=== PATIENT | male | born 1960 | race Caucasian/White ===

== ENCOUNTER 2020-06-03 06:39 | Emergency (ER) | payer MEDICARE, OTHER ==
[~2020-06-03 06:39] MED LIST: MEDROL 4MG DOSEP4 MG PO; NEURONTIN300 MG PO; NORCO 5-325 TA1 EACH PO; ROBAXIN750 MG PO
[2020-06-03] MEDS ORDERED: PREDNISONE 20MG20 MG PO (08:08)
[2020-06-03] MEDS ORDERED: MEDROL 4MG DOSEP4 MG PO (12:16)
[2020-06-03] MEDS ORDERED: NORCO 5/3251 EACH PO (12:16)
[2020-06-15] MEDS ORDERED: NORCO 5/3251 EACH PO (18:36)
[2020-06-23] MEDS ORDERED: [UNRECOGNIZED DRUG - OTHER] PO (09:11)
[2020-06-23] MEDS ORDERED: NORCO 5/3251 EACH PO (13:01)
== END 2020-06-03 08:25 | disposition home or self-care (01) ==
LOC: FER 06:39
DX: M54.16 Radiculopathy, lumbar region (principal); F17.210 Nicotine dependence, cigarettes, uncomplicated; Z90.49 Acquired absence of other specified parts of digestive tract
CPT/HCPCS: 96372; 99283; J2270; J2405

== ENCOUNTER 2020-07-06 17:46 | Emergency (ER) | payer MEDICARE, OTHER ==
[~2020-07-06 17:46] MED LIST changes: +NORCO 5/3251 EACH PO; +PREDNISONE 20MG20 MG PO; +[UNRECOGNIZED DRUG - OTHER] PO
[2020-07-06] MEDS ORDERED: CYCLOBENZAPRINE10 MG PO (18:55)
== END 2020-07-06 19:11 | disposition home or self-care (01) ==
LOC: FER 17:46
DX: M62.830 Muscle spasm of back (principal); G89.29 Other chronic pain; J44.9 Chronic obstructive pulmonary disease, unspecified
CPT/HCPCS: 99283; J2270

== ENCOUNTER 2020-08-02 16:11 | Emergency (ER) | payer OTHER ==
[~2020-08-02 16:11] MED LIST changes: +CYCLOBENZAPRINE10 MG PO
[2020-08-02] MEDS ORDERED: CYCLOBENZAPRINE10 MG PO (20:17)
== END 2020-08-02 21:15 | disposition home or self-care (01) ==
LOC: FER 16:11
DX: G89.29 Other chronic pain (principal); M54.9 Dorsalgia, unspecified; Z98.890 Other specified postprocedural states; Z79.899 Other long term (current) drug therapy; Z79.891 Long term (current) use of opiate analgesic; Z79.1 Long term (current) use of non-steroidal anti-inflammatories (NSAID)
CPT/HCPCS: 99283; J1885

== ENCOUNTER 2021-03-11 12:43 | Emergency (ER) | payer OTHER ==
[2021-03-11] MEDS ORDERED: NORCO 5-325 TA1 EACH PO (15:26)
[2021-03-11] MEDS ORDERED: PREDNISONE 20MG20 MG PO (15:26)
[2021-03-11] MEDS ORDERED: VALACYCLOVIR1000 MG PO (15:26)
== END 2021-03-11 15:42 | disposition home or self-care (01) ==
LOC: FER 12:43
DX: B02.9 Zoster without complications (principal); I10 Essential (primary) hypertension
CPT/HCPCS: 73030

== ENCOUNTER 2021-05-14 10:45 | Emergency (ER) | payer OTHER ==
[~2021-05-14 10:45] MED LIST changes: +VALACYCLOVIR1000 MG PO
[2021-05-14] MEDS ORDERED: NAPROXEN500 MG PO (11:25)
== END 2021-05-14 11:42 | disposition home or self-care (01) ==
LOC: FER 10:45
DX: M67.431 Ganglion, right wrist (principal); I10 Essential (primary) hypertension; J44.9 Chronic obstructive pulmonary disease, unspecified; F17.210 Nicotine dependence, cigarettes, uncomplicated
CPT/HCPCS: 73130